=== PATIENT | female | born 1940 | race Caucasian/White ===

== ENCOUNTER 2016-07-08 11:02 | Emergency (ER) | payer OTHER ==
--- NOTE | 2016-07-08 12:19 | RAD ---
INDICATION: Bent over and felt back pain and hip pain following exercise. COMPARISON: None TECHNIQUE: Noncontrast axial source images was performed from the thoracolumbar junction to the sacrum. Coronal and and sagittal reformatted images were generated. FINDINGS: Vertebrae: There is no fracture or acute focal bony lesion. The osseous structures appear normal for age. Alignment: The lumbar vertebrae are normally aligned. Central Canal: There are no significant CT abnormalities of the central canal or foramina. MR imaging is a more sensitive method to evaluate the canal and foramina. Intervertebral disc spaces: The disc spaces are maintained. Soft tissues: The paravertebral soft tissues are normal. Other: Incidental note is made of aortic calcifications. There is a tiny granuloma in the liver. IMPRESSION: NO ACUTE CT FINDINGS.
--- NOTE | 2016-07-08 12:21 | RAD ---
INDICATION: Hip pain following exercise COMPARISON: CT lumbar spine same date TECHNIQUE: Noncontrast axial source images were obtained from the iliac crests through the symphysis pubis. FINDINGS: There are no acute CT abnormalities of the bony pelvis. Several tiny sclerotic foci involving the right sacral alar are likely bone islands. The hips articulate normally There are calcified uterine leiomyomas. There is no adnexal mass. No free fluid or adenopathy is seen. The noncontrast CT appearance of the bowel is remarkable for scant diverticula. The superficial soft tissues appear normal. The bladder appears normal. IMPRESSION: NO ACUTE CT FINDINGS
[2016-07-08] MEDS ORDERED: predniSONE TAB* 20 MG PO ONE (13:16)
[2016-07-08 14:03] VITALS: BP 99/58
--- NOTE | 2016-08-01 14:21 | ED ---
Back Pain - HPI Summary HPI Summary: Patient presents with her daughter with pain from her low back that radiates to her entire right leg, from hip to ankle. Patient was doing exercises yesterday , when she bent over and stood up she heard a "pop". She performs this exercise routine regularly. She denies incontinence of urine or stool, no N/T or inability to walk. - History of Current Complaint Chief Complaint: EDBackInjuryPain Stated Complaint: RT LEG PAIN Time Seen by Provider: 07/08/16 11:34 Hx Obtained From: Patient, Family/Capacity Planning Manager Onset/Duration: Gradual Onset Timing: Constant Severity Initially: Severe Severity Currently: Severe Pain Intensity: 8 Pain Scale Used: 0-10 Numeric Character: Dull, Aching, Stiffness Aggravating Symptom(s): Bending Alleviating Symptom(s): Nothing Associated Signs And Symptoms: Positive: Pain with Weight Bearing - Allergies/Home Medications Allergies/Adverse Reactions: Allergies Allergy/AdvReac Type Severity Reaction Status Date / Time Lactose Intolerance (GI) Allergy Nausea And Verified 07/08/16 11:08 Vomiting Home Medications: Home Medications Atorvastatin* [Lipitor 10 MG*] 1 tab PO .EVERY EVENING 07/08/16 [History Confirmed 07/08/16] Omeprazole CAP* [Prilosec CAP* 20 MG] 1 cap PO DAILY 07/08/16 [History Confirmed 07/08/16] María D 1,000 i.u. PO DAILY 07/08/16 [History] PMH/Surg Hx/FS Hx/Imm Hx Endocrine/Hematology History: Reports: Other Endocrine/Hematological Disorders - gout Infectious Disease History: No Infectious Disease History: Denies: Traveled Outside the [place] in Last 30 Days - Family History Known Family History: Positive: Hypertension - Social History Occupation: Retired Lives: With Family Alcohol Use: None Substance Use Type: Reports: None Smoking Status (MU): Never Smoked Tobacco Review of Systems Positive: Myalgia Negative: Paresthesia, Numbness All Other Systems Reviewed And Are Negative: Yes Physical Exam Triage Information Reviewed: Yes Vital Signs On Initial Exam: Initial Vitals Temp Pulse Resp BP Pulse Ox 97.1 F 71 18 143/59 100 07/08/16 11:03 07/08/16 11:03 07/08/16 11:03 07/08/16 11:03 07/08/16 11:03 Vital Signs Reviewed: Yes Appearance: Positive: Well-Appearing, No Pain Distress, Well-Nourished Skin: Positive: Warm, Skin Color Reflects Adequate Perfusion, Dry, Soft Head/Face: Positive: Normal Head/Face Inspection Eyes: Positive: EOMI, HEENA, Conjunctiva Clear ENT: Positive: Hearing grossly normal Neck: Positive: Supple, Nontender Respiratory/Lung Sounds: Positive: Breath Sounds Present Cardiovascular: Positive: RRR Musculoskeletal: Positive: Strength/ROM Intact - TTP right SI joint over right buttock, Pain @ - TTP right Neurological: Positive: Sensory/Motor Intact, Alert, Oriented to Person Place, Time, NV Bundle Intact Distally, Normal Gait Psychiatric: Positive: Affect/Mood Appropriate AVPU Assessment: Alert Diagnostics - Vital Signs Vital Signs Temp Pulse Resp BP Pulse Ox 07/08/16 14:02 99.3 F 62 18 99/58 07/08/16 11:11 97.2 F 89 16 143/59 100 07/08/16 11:03 97.1 F 71 18 143/59 100 - Laboratory Lab Statement: Any lab studies that have been ordered have been reviewed, and results considered in the medical decision making process. - CT No standard instances CT Interpretation: No Acute Changes CT Interpretation Completed By: Radiologist Back Pain Course/Dx - Diagnoses Differential Diagnosis/HQI/PQRI: Positive: Aneurysm, Arthritis, Fracture, Herniated Disc, Strain, Sprain Provider Diagnoses: Sciatica of right side Discharge - Discharge Plan Condition: Stable Disposition: HOME Prescriptions: predniSONE TAB* [Deltasone TAB*] 40 mg PO DAILY #9 tab Patient Education Materials: Sciatica (ED) Additional Instructions: Please take the prednisone as prescribed until it is completely gone. Use ibuprofen for pain as needed and perform activities as tolerated. Follow-up with your primary care provider if your symptoms do not begin to improve in the next 3-5 days. Return to the emergency department if symptoms worsen.
== END 2016-07-08 14:02 | disposition home or self-care (01) ==
LOC: ED 11:02
DX: M54.31 Sciatica, right side (principal); M54.5 Low back pain; M79.604 Pain in right leg
CPT/HCPCS: 72131; 72192; 99281

== ENCOUNTER 2018-10-04 15:53 | Emergency (ER) | payer MEDICARE, MEDICAID ==
--- OUTSIDE RECORDS SUMMARY | 2018-10-04 15:58 | XMS REPORT | Continuity of Care Document ---
:1940 External Reference #:[id number] Author Name Cole Pete M.D. Address [address] [place] [address] Care Team Providers Name Role Phone Shira Denton M.D. Primary Care Physician Unavailable Payers Date Identification Numbers Payment Provider Subscriber Policy Number: [id number] Medicare - NGS Yocasta May PayID: [id number] [place] [address] Policy Number: [id number] Medicaid Yocasta May PayID: [id number] [place] [address] Problems Active Problems Provider Date Hypercholesterolemia Onset: Osteoporosis Onset: Herpes simplex Onset: Combined form of senile cataract Cole Pete M.D. 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 ETOH Use Denies alcohol use Recreational Drug Use Denies Drug Use Tobacco Use Start: Unknown Patient has never smoked Smoking Status Reviewed: 09/19/18 Patient has never smoked Allergies, Adverse Reactions, Alerts Active Allergies Reaction Severity Comments Date Lactose 09/19/2018 Medications Active Medications SIG Qnty Indications Ordering Provider Date Atorvastatin Calcium Unknown 20mg Tablets Vitamin D every day Unknown 1000Unit Tablets Acyclovir as needed Unknown 200mg Capsules Plan of Treatment 09/19/2018 - Cole Pete M.D.H25.058 Combined forms of age-related cataract, bilateralComments:Smoking can increase the risk of developing or worsening any eye related disease, as well as affect your overall health. If you are a smoker, we strongly recommend that you quit.If you are not a smoker, we strongly recommend that you do not start. You have been diagnosed with cataracts. If you are happy with your vision as it is now, then we will see you at your next scheduled appointment. If you feel like your vision is getting worse before your scheduled appointment, please call Krystal at .Follow up:1 Year Follow Up DFE You can expect to have your eyes dilated at your next visit. If Dr. Pete orders any additional testing, it may require extra time. We recommend that you bring sunglasses, as dilation drops often make you light sensitive until they wear off. We always recommend you bring someone to drive you home if you are uncomfortable driving with your eyes dilated. If you have any questions before your next visit, feel free to call our office at .[phone] Nonexudative age-related macular degeneration, bilateral, early dry stageComments:You have Macular Degeneration. Check your Amsler Grid, with each eye separately, and take the AREDS II formula vitamins. If you notice any changes in your vision, please call the office and schedule anappointment to see any of the doctors here.
--- OUTSIDE RECORDS SUMMARY | 2018-10-04 15:58 | XMS REPORT | Continuity of Care Document ---
:1940 External Reference #:[id number] Author Name Yesenia Malagon Care Team Providers Name Role Phone Shira Denton MD Primary Care Physician Unavailable Payers Date Identification Numbers Payment Provider Subscriber Policy Number: [id number] Medicare Yocasta May PayID: [id number] [address] [place] [address] Effective: 2018 Policy Number: [id number] Medicaid Yocasta May Group Name: 1 1 [address] PayID: [id number] [place] [address] Expires: 2013 Policy Number: [id number] Medicaid Yocasta May Group Name: [id number] [address] PayID: [id number] [place] [address] Problems Active Problems Provider Date Palpitations Tina Cabrera M.D. Onset: 11/27/2013 Hyperlipidemia Tina Cabrera M.D. Onset: 11/27/2013 Gastroesophageal reflux disease Shira Denton M.D. Onset: 06/06/2016 Osteopenia Shira Denton M.D. Onset: 10/20/2016 Resolved Problems Generalized anxiety disorder Tina Cabrera M.D. Onset: 11/27/2013 Resolved: 06/06/2016 Family History Date Family Member(s) Observation Comments Father due to no known cardiac () - 20's in ww2 issues Mother due to no known cardiac () - in her 90's. issues Siblings None Social History Type Date Description Comments Sex Unknown Marital Status has 2 sons, [place]. lives with son [place] in [place] Lives With Son Occupation [employer] Tobacco Use Start: Unknown Never Smoked Cigarettes Smoking Status Reviewed: 09/12/18 Never Smoked Cigarettes ETOH Use Denies alcohol use Tobacco Use Start: Unknown Patient has never smoked Recreational Drug Use Denies Drug Use Exercise Type/Frequency Exercises regularly Exercise Type/Frequency walks Allergies, Adverse Reactions, Alerts Active Allergies Reaction Severity Comments Date Lactose (Intolerance) 11/03/2014 Inactive Allergies NKDA 11/14/2013 Medications Active Medications SIG Qnty Indications Ordering Date Provider Shingrix intramuscular x 1 1units Shira Denton, 11/13/2017 50mcg then repeat in 4 M.D. Suspension Rec months Acyclovir by mouth 3x a day 30tabs B00.1 Shira Denton, 07/03/2017 400mg for 5 days as needed M.D. Tablets cold sore Vitamin D-3 Liquid 1 drop Unknown alternate day 2 drops Atorvastatin Calcium take 1 tablet by 90tabs Carolyn Guillermo, mouth daily N.P. 20mg Tablets History Medications Pantoprazole Sodium once a day 60tabs K21.9 Shira Denton, 11/13/2017 - M.D. 05/16/[address] Santiagoyclfaith apply small 15gm B00.1 Jyoti 06/28/2017 - 5% Ointment amount every 4 Manuel, INFECTION CONTROL PRACTITIONER 07/03/2017 hours (5xqd) as needed for cold sores Co Q 10 once a day( not Shira Denton, 11/14/2016 - 10mg Capsules taking) M.D. 08/14/2017 Omeprazole 1 by mouth every 30caps K21.9 Shira Denton, 07/26/2016 - 20mg day M.D. 11/13/2016 Capsules Omeprazole 1 by mouth every 60caps K21.9 Shira Denton, 06/06/2016 - 20mg day M.D. 07/26/2016 Capsules Atorvastatin Calcium take one tablet E78.5 Dylan Martins 12/01/2015 - by mouth at Fede Kaye 11/30/2015 20mg Tablets bedtime Vitamin D take one capsule 8caps Tina Cabrera, 11/24/2015 - (Ergocalciferol) by mouth once a M.D. 06/06/2016 week [id number] Capsules Co Q-10 1 by mouth every 60caps Dylan Martins 08/02/2015 - 200mg day (no longer Fede Kaye 06/06/2016 Capsules taking) Colcrys 1 by mouth twice 30tabs M79.672 Tina Cabrera, 06/10/2015 - 0.6mg Tablets a day (pt states M.DMelly 11/11/2015 no longer taking) Potassium Chloride 1 po qd 90tabs Dylan Martins 11/09/2014 - ER Fede Kaye 06/10/2015 20Meq Tablets ER Potassium Chloride 1 po qd 90tabs Dylan Martins 11/09/2014 - Fede Kaye 11/09/2014 20Meq Tablets ER Potassium Chloride 1 po qd 90units Tina Cabrera 11/09/2014 - M.DMelly 11/09/2014 20Meq Doxycycline Hyclate 1 by mouth twice 28tabs Tina Cabrera 08/18/2014 - a day M.DMelly 11/03/2014 100mg Tablets Doxycycline Hyclate two caps by mouth 2cmax Napier 08/03/2014 - once daily Pt, Fede Lutz 08/06/2014 100mg Capsules states not currently taking Vitamin D3 1 tab by mouth 8caps Tina Cabrera, 06/30/2014 - 48239Henk once per week, 8 M.DMelly 11/03/2014 Capsules weeks, then follow up for blood test Bisoprolol Fumarate 1/2 by mouth 45tabs Dylan Martins 06/22/2014 - every day Fede Kaye 08/05/2014 5mg Tablets No Active Unknown 05/08/2014 - Medications 05/08/2014 Omeprazole 1 by mouth every 90caps 530.11 Tina Cabrera 05/08/2014 - 20mg day Pt states she M.DMelly 06/10/2015 Capsules is not currently taking Glucosamine as directed on 100caps 848.8 Tina Cabrera, 12/02/2013 - Chondroitin 500 bottle M.D. 05/08/2014 Complex 500Comp Capsules Atorvastatin Calcium 1/2 by mouth 45tabs E78.5 Dylan Martins - every day Fede Kaye 06/10/2018 20mg Tablets Vitamin B-12 by mouth every Unknown - day 10/06/2015 [id number] Capsules Aspirin Ec 1 tablet daily Unknown - 81mg 06/06/2016 Torsemide 1 tablet by mouth 5tabs Dylan Martins - 10mg today (prn) Fede Kaye 09/12/2018 Tablets Immunizations CPT Code Status Date Vaccine Reaction Lot # [id number] Given 11/13/2017 Tdap - [id number] Tetanus/Diptheria/Acellular Pertussis [id number] Given 06/06/2016 Pneumococcal Conjugate per log and pt she [id number] Vaccine 13 Valent For rec'd injection on this Intramuscular Use day. order was not completed by Nurse. ... 11/14/16 [id number] Given 12/18/2013 Pneumonia Vaccine [id number] Vital Signs Date Vital Result Comment 09/12/2018 1:04pm Height 61 inches 5'1" Weight 143.00 lb Heart Rate 62 /min BP Systolic Sitting 126 mmHg BP Diastolic Sitting 61 mmHg O2 % BldC Oximetry 100 % BMI (Body Mass Index) 27.0 kg/m2 06/11/2018 3:26pm Height 61 inches 5'1" Weight 143.00 lb with out shoes Heart Rate 70 /min BP Systolic Sitting 110 mmHg Lue reg cuff BP Diastolic Sitting 50 mmHg Lue reg cuff BP Systolic Standing 110 mmHg Lue reg cuff BP Diastolic Standing 52 mmHg Lue reg cuff Respiratory Rate 16 /min BMI (Body Mass Index) 27.0 kg/m2 05/16/2018 3:38pm Height 61 inches 5'1" Weight 143.00 lb Heart Rate 62 /min BP Systolic Sitting 130 mmHg Lue reg cuff BP Diastolic Sitting 65 mmHg Lue reg cuff BP Systolic Standing 106 mmHg la repeat sit BP Diastolic Standing 59 mmHg la repeat sit Respiratory Rate 15 /min O2 % BldC Oximetry 98 % ra BMI (Body Mass Index) 27.0 kg/m2 05/16/2018 8:30am Height 61 inches 5'1" Weight 143.00 lb Heart Rate 61 /min BP Systolic Sitting 140 mmHg BP Diastolic Sitting 78 mmHg O2 % BldC Oximetry 98 % BMI (Body Mass Index) 27.0 kg/m2 11/13/2017 10:33am Height 61 inches 5'1" Weight 139.00 lb Heart Rate 69 /min BP Systolic Sitting 110 mmHg BP Diastolic Sitting 60 mmHg O2 % BldC Oximetry 96 % BMI (Body Mass Index) 26.3 kg/m2 08/14/2017 8:18am Weight 140.00 lb Heart Rate 78 /min BP Systolic Sitting 110 mmHg lue reg cuff BP Diastolic Sitting 58 mmHg lue reg cuff BP Systolic Standing 100 mmHg lue reg cuff BP Diastolic Standing 40 mmHg lue reg cuff Respiratory Rate 16 /min Ejection Fraction 60-65% 07/19/2017 echo 06/28/2017 11:39am Weight 137.00 lb Heart Rate 80 /min BP Systolic 110 mmHg BP Diastolic 60 mmHg Body Temperature 98.4 F O2 % BldC Oximetry 96 % 06/14/2017 2:01pm Height 61 inches 5'1" Weight 146.00 lb with out shoes Heart Rate 60 /min BP Systolic Sitting 120 mmHg Lue reg cuff BP Diastolic Sitting 60 mmHg Lue reg cuff Respiratory Rate 16 /min BMI (Body Mass Index) 27.6 kg/m2 11/14/2016 8:40am Height 61.3 inches 5'1.30" Weight 137.12 lb Heart Rate 67 /min BP Systolic Sitting 122 mmHg BP Diastolic Sitting 58 mmHg Body Temperature 97.6 F O2 % BldC Oximetry 96 % BMI (Body Mass Index) 25.7 kg/m2 07/26/2016 9:46am Weight 138.00 lb Heart Rate 66 /min BP Systolic Sitting 122 mmHg BP Diastolic Sitting 76 mmHg Respiratory Rate 15 /min O2 % BldC Oximetry 97 % 06/06/2016 1:30pm Height 61 inches 5'1" Weight 140.25 lb with shoes Heart Rate 72 /min BP Systolic Sitting 154 mmHg LA reg cuff BP Diastolic Sitting 78 mmHg LA reg cuff BP Systolic Standing 138 mmHg LA Repeat Sit BP Diastolic Standing 61 mmHg LA Repeat Sit BMI (Body Mass Index) 26.5 kg/m2 Ejection Fraction 60% stress echo 08/20/14 06/06/2016 8:51am Weight 139.00 lb Heart Rate 62 /min BP Systolic Sitting 128 mmHg BP Diastolic Sitting 80 mmHg Respiratory Rate 15 /min Body Temperature 98.0 F O2 % BldC Oximetry 98 % 11/11/2015 2:07pm Height 61 inches 5'1" Weight 135.00 lb Heart Rate 69 /min BP Systolic Sitting 126 mmHg BP Diastolic Sitting 50 mmHg Body Temperature 99.1 F O2 % BldC Oximetry 98 % BMI (Body Mass Index) 25.5 kg/m2 10/07/2015 1:13pm Height 61 inches 5'1" Weight 136.00 lb Heart Rate 70 /min BP Systolic Sitting 124 mmHg Ra reg cuff BP Diastolic Sitting 76 mmHg Ra reg cuff BP Systolic Standing 120 mmHg Ra reg cuff BP Diastolic Standing 70 mmHg Ra reg cuff Respiratory Rate 16 /min BMI (Body Mass Index) 25.7 kg/m2 Ejection Fraction 60-65% 06/26/14 08/02/2015 9:27am Height 61 inches 5'1" Weight 137.25 lb with shoes Heart Rate 70 /min BP Systolic Sitting 124 mmHg LA, regular BP Diastolic Sitting 64 mmHg LA, regular BMI (Body Mass Index) 25.9 kg/m2 Ejection Fraction 60% Nem 08/20/14 06/10/2015 3:20pm Height 61 inches 5'1" Weight 133.00 lb Heart Rate 74 /min BP Systolic 102 mmHg BP Diastolic 59 mmHg Body Temperature 99.3 F O2 % BldC Oximetry 99 % BMI (Body Mass Index) 25.1 kg/m2 11/03/2014 2:09pm Height 61 inches 5'1" Weight 133.50 lb Heart Rate 71 /min BP Systolic Sitting 110 mmHg BP Diastolic Sitting 62 mmHg O2 % BldC Oximetry 98 % BMI (Body Mass Index) 25.2 kg/m2 08/20/2014 11:38am Height 61 inches 5'1" Weight 132.00 lb Heart Rate 64 /min BP Systolic Sitting 100 mmHg BP Diastolic Sitting 60 mmHg Body Temperature 98.8 F O2 % BldC Oximetry 96 % BMI (Body Mass Index) 24.9 kg/m2 08/06/2014 10:58am Height 61 inches 5'1" Weight 129.75 lb Heart Rate 65 /min BP Systolic Sitting 112 mmHg BP Diastolic Sitting 60 mmHg Body Temperature 98.2 F O2 % BldC Oximetry 98 % BMI (Body Mass Index) 24.5 kg/m2 08/06/2014 9:32am Height 61 inches 5'1" Weight 133.00 lb Heart Rate 76 /min BP Systolic Sitting 110 mmHg LA reg cuff BP Diastolic Sitting 56 mmHg LA reg cuff Respiratory Rate 12 /min BMI (Body Mass Index) 25.1 kg/m2 Ejection Fraction 60-65 echo 06/26/14 06/22/2014 9:57am Height 61 inches 5'1" Weight 129.75 lb Heart Rate 66 /min BP Systolic Sitting 118 mmHg LA, reg BP Diastolic Sitting 68 mmHg LA, reg BMI (Body Mass Index) 24.5 kg/m2 05/08/2014 3:45pm Height 61 inches 5'1" Weight 136.00 lb Heart Rate 64 /min BP Systolic Sitting 112 mmHg BP Diastolic Sitting 62 mmHg Body Temperature 97.9 F BMI (Body Mass Index) 25.7 kg/m2 12/02/2013 11:41am Height 61 inches 5'1" Weight 134.75 lb Heart Rate 62 /min BP Systolic Sitting 114 mmHg BP Diastolic Sitting 68 mmHg O2 % BldC Oximetry 99 % BMI (Body Mass Index) 25.5 kg/m2 11/14/2013 9:10am Height 61 inches 5'1" Weight 133.00 lb Heart Rate 68 /min BP Systolic Sitting 112 mmHg BP Diastolic Sitting 60 mmHg BMI (Body Mass Index) 25.1 kg/m2 Results Test Date Facility Test Result H/L Range Note CBC Auto Diff 08/09/2018 [facility] White Blood 5.6 10^3/uL N 3.5-10.[address] [place] [address] [phone] Red Blood Count 4.53 10^6/uL N 3.70-4.87 Hemoglobin 13.1 g/dL N 12.0-16.0 Hematocrit 40 % N 35-47 Mean Corpuscular Volume 88 fL N 80-97 Mean Corpuscular Hemoglobin 29 pg N 27-31 Mean Corpuscular HGB Conc 33 g/dL N 31-36 Red Cell Distribution Width 14 % N 10.5-15 Platelet Count 176 10^3/uL N 150-450 Mean Platelet Volume 8.5 fL N 7.4-10.4 Abs Neutrophils 3.4 10^3/uL N 1.5-7.7 Abs Lymphocytes 1.6 10^3/uL N 1.0-4.8 Abs Monocytes 0.4 10^3/uL N 0-0.8 Abs Eosinophils 0.1 10^3/uL N 0-0.6 Abs Basophils 0.0 10^3/uL N 0-0.2 Abs Nucleated RBC 0.0 10^3/uL Granulocyte % 60.9 % Lymphocyte % 29.7 % Monocyte % 7.3 % Eosinophil % 1.8 % Basophil % 0.3 % Nucleated Red Blood Cells % 0.1 Laboratory test 08/09/2018 [facility] D Dimer < 200 N Less Than [address] Quantitative ng/mL [address] [place], [place] [id number] [phone] B-Type Natriuretic Peptide BNP 260 pg/mL High <=100 Laboratory test 05/17/2018 [facility] D Dimer 202 ng/mL N Less Than [address] Quantitative [address] [place] [address] [phone] B-Type Natriuretic Peptide BNP 570 pg/mL High <=100 CBC Auto Diff 05/17/2018 [facility] White Blood 6.1 10^3/uL N 3.5-10.[address] [place] [address] [phone] Red Blood Count 4.61 10^6/uL N 4.00-5.40 Hemoglobin 13.3 g/dL N 12.0-16.0 Hematocrit 41 % N 35-47 Mean Corpuscular Volume 88 fL N 80-97 Mean Corpuscular Hemoglobin 29 pg N 27-31 Mean Corpuscular HGB Conc 33 g/dL N 31-36 Red Cell Distribution Width 14 % N 10.5-15 Platelet Count 186 10^3/uL N 150-450 Mean Platelet Volume 8.8 fL N 7.4-10.4 Abs Neutrophils 4.0 10^3/uL N 1.5-7.7 Abs Lymphocytes 1.5 10^3/uL N 1.0-4.8 Abs Monocytes 0.5 10^3/uL N 0-0.8 Abs Eosinophils 0.1 10^3/uL N 0-0.6 Abs Basophils 0 10^3/uL N 0-0.2 Abs Nucleated RBC 0 10^3/uL Granulocyte % 64.8 % Lymphocyte % 25.2 % Monocyte % 8.2 % Eosinophil % 1.1 % Basophil % 0.7 % Nucleated Red Blood Cells % 0.1 Lipid Profile 05/16/2018 [facility] Triglycerides 100 mg/dL 3 (Trig/Chol/HDL) [address] [place] [address] [phone] Cholesterol 189 mg/dL 4 HDL Cholesterol 57.7 mg/dL 5 LDL Cholesterol 111 mg/dL 6 Laboratory test 05/16/2018 [facility] Vitamin D 35.0 ng/mL N 20-[address] Total 25(Oh) [place], [place] [id number] [phone] Comp Metabolic 05/16/2018 [facility] Sodium 143 mmol/L N 135- [address] [place] [address] [phone] Potassium 4.4 mmol/L N 3.5-5.0 Chloride 106 mmol/L N 101-111 Co2 Carbon Dioxide 27 mmol/L N 22-32 Anion Gap 10 mmol/L N 2-11 Glucose 92 mg/dL N 70-100 Blood Urea Nitrogen 13 mg/dL N 6-24 Creatinine 0.75 mg/dL N 0.51-0.95 BUN/Creatinine Ratio 17.3 N 8-20 Calcium 9.7 mg/dL N 8.6-10.3 Total Protein 6.6 g/dL N 6.4-8.9 Albumin 4.0 g/dL N 3.2-5.2 Globulin 2.6 g/dL N 2-4 Albumin/Globulin Ratio 1.5 N 1-3 Total Bilirubin 0.50 mg/dL N 0.2-1.0 Alkaline Phosphatase 87 U/L N 34-104 Alt 22 U/L N 7-52 Ast 25 U/L N 13-39 Egfr Non- 74.7 >60 Egfr 90.4 >60 8 Lipid Profile 10/25/2017 [facility] Triglycerides 111 mg/dL 9 (Trig/Chol/HDL) [address] [place] [address] [phone] Cholesterol 192 mg/dL 10 HDL Cholesterol 58.2 mg/dL 11 LDL Cholesterol 112 mg/dL 12 Comp Metabolic Panel 10/25/2017 [facility] Sodium 144 mmol/L N 135-[address] [place] [address] [phone] Potassium 4.6 mmol/L N 3.5-5.0 Chloride 107 mmol/L N 101-111 Co2 Carbon Dioxide 30 mmol/L N 22-32 Anion Gap 7 mmol/L N 2-11 Glucose 90 mg/dL N 70-100 Blood Urea Nitrogen 16 mg/dL N 6-24 Creatinine 0.80 mg/dL N 0.51-0.95 BUN/Creatinine Ratio 20.0 N 8-20 Calcium 9.5 mg/dL N 8.6-10.3 Total Protein 6.7 g/dL N 6.4-8.9 Albumin 4.2 g/dL N 3.2-5.2 Globulin 2.5 g/dL N 2-4 Albumin/Globulin Ratio 1.7 N 1-3 Total Bilirubin 0.50 mg/dL N 0.2-1.0 Alkaline Phosphatase 80 U/L N 34-104 Alt 17 U/L N 7-52 Ast 20 U/L N 13-39 Egfr Non- 69.6 >60 Egfr 84.2 >60 13 Lipid Panel - 10/25/2017 [facility] Creatine 51 U/L N 10-223 [address] Kinase(CK) [place] [address] [phone] Laboratory test 10/25/2017 [facility] Vitamin D Total 27.1 N 20-50 [address] 25(Oh) ng/[place] [address] [phone] CBC Auto Diff 06/07/2017 [facility] White Blood 5.5 N 3.5- 10.[address] Count 10^3/[place] [address] [phone] Red Blood Count 4.80 10^6/uL N 4.0-5.4 Hemoglobin 13.7 g/dL N 12.0-16.0 Hematocrit 42 % N 35-47 Mean Corpuscular Volume 87 fL N 80-97 Mean Corpuscular Hemoglobin 29 pg N 27-31 Mean Corpuscular HGB Conc 33 g/dL N 31-36 Red Cell Distribution Width 14 % N 10.5-15 Platelet Count 168 10^3/uL N 150-450 Mean Platelet Volume 9 um3 N 7.4-10.4 Abs Neutrophils 3.4 10^3/uL N 1.5-7.7 Abs Lymphocytes 1.7 10^3/uL N 1.0-4.8 Abs Monocytes 0.4 10^3/uL N 0-0.8 Abs Eosinophils 0.1 10^3/uL N 0-0.6 Abs Basophils 0 10^3/uL N 0-0.2 Abs Nucleated RBC 0 10^3/uL Granulocyte % 60.8 % N 38-83 Lymphocyte % 30.9 % N 25-47 Monocyte % 6.9 % N 0-7 Eosinophil % 1.1 % N 0-6 Basophil % 0.3 % N 0-2 Nucleated Red Blood Cells % 0 Lipid Panel - 06/07/2017 [facility] Creatine Kinase 51 U/L N 10-[address] [place] [address] [phone] Comp Metabolic 06/07/2017 [facility] Sodium 142 N 133-[address] mmol/[place] [address] [phone] Potassium 4.9 mmol/L N 3.5-5.0 Chloride 105 mmol/L N 101-111 Co2 Carbon Dioxide 31 mmol/L N 22-32 Anion Gap 6 mmol/L N 2-11 Glucose 92 mg/dL N 70-100 Blood Urea Nitrogen 15 mg/dL N 6-24 Creatinine 0.82 mg/dL N 0.51-0.95 BUN/Creatinine Ratio 18.3 N 8-20 Calcium 10.0 mg/dL N 8.6-10.3 Total Protein 6.9 g/dL N 6.4-8.9 Albumin 4.3 g/dL N 3.2-5.2 Globulin 2.6 g/dL N 2-4 Albumin/Globulin Ratio 1.7 N 1-3 Total Bilirubin 0.60 mg/dL N 0.2-1.0 Alkaline Phosphatase 81 U/L N 34-104 Alt 15 U/L N 7-52 Ast 20 U/L N 13-39 Egfr Non- 67.6 >60 Egfr 86.9 >60 17 Lipid Profile 06/07/2017 [facility] Triglycerides 107 mg/dL 18 (Trig/Chol/HDL) [address] [place] [address] [phone] Cholesterol 240 mg/dL 19 HDL Cholesterol 56.3 mg/dL 20 LDL Cholesterol 162 mg/dL 21 Laboratory test 06/07/2017 [facility] TSH (Thyroid 3.17 mcIU/mL N 0.34-5.[address] Stim Horm) [place] [address] [phone] Magnesium 2.4 mg/dL N 1.9-2.7 23 Vitamin D Total 25(Oh) 30.6 ng/mL N 20-50 Laboratory test 10/20/2016 [facility] Vitamin D Total 25.8 Low 30-[address] 25(Oh) ng/mL [place], [place] [phone] Lipid Profile 10/20/2016 [facility] Triglycerides 90 mg/dL N 24 (Trig/Chol/HDL) [address] [place] [address] [phone] Cholesterol 204 mg/dL N 25 HDL Cholesterol 50.0 mg/dL N 26 LDL Cholesterol 136 mg/dL N 27 Laboratory test 07/27/2016 [facility] Creatine 58 U/L N 10- 223 28 finding 101 Kinase(CK) [place] [address] [phone] Lyme Disease Serology Negative N Negative 29 TSH (Thyroid Stim Horm) 1.11 mcIU/mL N 0.34-5.60 30 Erythrocyte Sed Rate 34 mm/Hr N 0-40 31 Basic Metabolic Panel 07/27/2016 [facility] Sodium 140 mmol/L N 133-[address] [place] [address] [phone] Potassium 4.7 mmol/L N 3.5-5.0 Chloride 106 mmol/L N 101-111 Co2 Carbon Dioxide 29 mmol/L N 22-32 Anion Gap 5 mmol/L N 2-11 Glucose 71 mg/dL N 70-100 Blood Urea Nitrogen 16 mg/dL N 6-24 Creatinine 0.85 mg/dL N 0.51-0.95 BUN/Creatinine Ratio 18.8 N 8-20 Calcium 9.6 mg/dL N 8.6-10.3 Egfr Non- 65.0 N >60 Egfr 83.6 N >60 32 Laboratory 07/27/2016 [facility] [place] Negative N Negative 33, 34 test finding [address] [place] [address] Antigen- [phone] Stool Laboratory 11/19/2015 [facility] Occult Blood neg x3 test finding - Stool Laboratory 11/19/2015 [facility] Vitamin D 24.7 ng/mL Low 30- 50 [address] Total 25(Oh) [place] [address] [phone] Lipid Panel - 11/04/2015 [facility] Creatine 53 U/L N 10-223 36, [address] Kinase(CK) [place] [address] [phone] Comp Metabolic 11/04/2015 [facility] Sodium 140 mmol/L N 133- [address] [place] [address] [phone] Potassium 4.8 mmol/L N 3.5-5.0 Chloride 106 mmol/L N 101-111 Co2 Carbon Dioxide 29 mmol/L N 22-32 Anion Gap 5 mmol/L N 2-11 Glucose 79 mg/dL N 70-100 Blood Urea Nitrogen 16 mg/dL N 6-24 Creatinine 0.75 mg/dL N 0.51-0.95 BUN/Creatinine Ratio 21.3 High 8-20 Calcium 9.5 mg/dL N 8.6-10.3 Total Protein 6.5 g/dL N 6.4-8.9 Albumin 4.0 g/dL N 3.2-5.2 Globulin 2.5 g/dL N 2-4 Albumin/Globulin Ratio 1.6 N 1-3 Total Bilirubin 0.60 mg/dL N 0.2-1.0 Alkaline Phosphatase 74 U/L N 34-104 Alt 13 U/L N 7-52 Ast 19 U/L N 13-39 Egfr Non- 75.3 N >60 Egfr 96.9 N >60 38 Lipid Profile 11/04/2015 [facility] Triglycerides 74 mg/dL N 39 (Trig/Chol/HDL) [address] [place] [address] [phone] Cholesterol 166 mg/dL N 40 HDL Cholesterol 54.8 mg/dL N 41 LDL Cholesterol 96 mg/dL N 42 CBC Auto Diff 07/02/2015 [facility] White Blood 5.2 10^3/uL N 3.5-10.[address] [place] [address] [phone] Red Blood Count 4.57 10^6/uL N 4.0-5.4 Hemoglobin 13.1 g/dL N 12.0-16.0 Hematocrit 39 % N 35-47 Mean Corpuscular Volume 86 fL N 80-97 Mean Corpuscular Hemoglobin 29 pg N 27-31 Mean Corpuscular HGB Conc 33 g/dL N 31-36 Red Cell Distribution Width 14 % N 10.5-15 Platelet Count 187 10^3/uL N 150-450 Mean Platelet Volume 8 um3 N 7.4-10.4 Abs Neutrophils 3.1 10^3/uL N 1.5-7.7 Abs Lymphocytes 1.6 10^3/uL N 1.0-4.8 Abs Monocytes 0.4 10^3/uL N 0-0.8 Abs Eosinophils 0.1 10^3/uL N 0-0.6 Abs Basophils 0 10^3/uL N 0-0.2 Abs Nucleated RBC 0 10^3/uL N Granulocyte % 59.4 % N 38-83 Lymphocyte % 30.8 % N 25-47 Monocyte % 7.0 % N 1-9 Eosinophil % 2.4 % N 0-6 Basophil % 0.4 % N 0-2 Nucleated Red Blood Cells % 0 N Lipid Profile 07/02/2015 [facility] Triglycerides 85 mg/dL N 44 (Trig/Chol/HDL) [address] [place] [address] [phone] Cholesterol 184 mg/dL N 45 HDL Cholesterol 53.7 mg/dL N 46 LDL Cholesterol 113 mg/dL N 47 Lipid Panel - 07/02/2015 [facility] Creatine 45 U/L N 10-223 [address] Kinase(CK) [place] [address] [phone] Comp Metabolic 07/02/2015 [facility] Sodium 142 N 133-[address] mmol/[place] [address] [phone] Potassium 5.1 mmol/L High 3.5-5.0 Chloride 106 mmol/L N 101-111 Co2 Carbon Dioxide 30 mmol/L N 22-32 Anion Gap 6 mmol/L N 2-11 Glucose 89 mg/dL N 70-100 Blood Urea Nitrogen 14 mg/dL N 6-24 Creatinine 0.83 mg/dL N 0.51-0.95 BUN/Creatinine Ratio 16.9 N 8-20 Calcium 9.8 mg/dL N 8.6-10.3 Total Protein 6.7 g/dL N 6.4-8.9 Albumin 4.2 g/dL N 3.2-5.2 Globulin 2.5 g/dL N 2-4 Albumin/Globulin Ratio 1.7 N 1-3 Total Bilirubin 0.60 mg/dL N 0.2-1.0 Alkaline Phosphatase 96 U/L N 34-104 Alt 19 U/L N 7-52 Ast 22 U/L N 13-39 Egfr Non- 67.0 N >60 Egfr 86.2 N >60 49 Laboratory test 06/10/2015 [facility] Uric Acid 3.9 mg/dL N 2.3-6.6 [address] [place] [address] [phone] Erythrocyte Sed Rate 44 mm/Hr High 0-40 51 CBC Auto Diff 10/16/2014 White Blood Count 6.6 10^3/uL N 4.8-10.8 Red Blood Count 4.65 10^6/uL N 4.0-5.4 Hemoglobin 13.6 g/dL N 12.0-16.0 Hematocrit 42 % N 35-47 Mean Corpuscular Volume 90 fL N 80-97 Mean Corpuscular Hemoglobin 29 pg N 27-31 Mean Corpuscular HGB Conc 33 g/dL N 31-36 Red Cell Distribution Width 14 % N 10.5-15 Platelet Count 186 10^3/uL N 150-450 Mean Platelet Volume 9 um3 N 7.4-10.4 Abs Neutrophils 4.1 10^3/uL N 1.5-7.7 Abs Lymphocytes 1.9 10^3/uL N 1.0-4.8 Abs Monocytes 0.4 10^3/uL N 0-0.8 Abs Eosinophils 0.1 10^3/uL N 0-0.6 Abs Basophils 0 10^3/uL N 0-0.2 Abs Nucleated RBC 0 10^3/uL N Granulocyte % 62.4 % N 38-83 Lymphocyte % 29.3 % N 25-47 Monocyte % 6.5 % N 1-9 Eosinophil % 1.2 % N 0-6 Basophil % 0.6 % N 0-2 Nucleated Red Blood Cells % 0 N Lipid Profile (Trig/Chol/HDL) 10/16/2014 Triglycerides 78 mg/dL N 52 Cholesterol 187 mg/dL N 53 HDL Cholesterol 59.4 mg/dL N 54 LDL Cholesterol 112 mg/dL N 55 Comp Metabolic Panel 10/16/2014 Sodium 142 mmol/L N 133-145 Potassium 3.9 mmol/L N 3.5-5.0 Chloride 106 mmol/L N 101-111 Co2 Carbon Dioxide 31 mmol/L N 22-32 Anion Gap 5 mmol/L N 2-11 Glucose 82 mg/dL N 70-100 Blood Urea Nitrogen 12 mg/dL N 6-24 Creatinine 0.77 mg/dL N 0.51-0.95 BUN/Creatinine Ratio 15.6 N 8-20 Calcium 9.6 mg/dL N 8.6-10.3 Total Protein 6.8 g/dL N 6.4-8.9 Albumin 4.4 g/dL N 3.2-5.2 Globulin 2.4 g/dL N 2-4 Albumin/Globulin Ratio 1.8 N 1-3 Total Bilirubin 0.50 mg/dL N 0.2-1.0 Alkaline Phosphatase 69 U/L N 34-104 Alt 14 U/L N 7-52 Ast 20 U/L N 13-39 Egfr Non- 73.3 N >60 Egfr 94.2 N >60 56 Lipid Panel - [facility] 10/16/2014 Creatine Kinase(CK) 55 U/L N 10-223 Laboratory test finding 10/16/2014 B-Type Natriuretic 225 pg/mL High 57 Peptide BNP Magnesium 2.0 mg/dL N 1.9-2.7 Laboratory test finding 08/20/2014 Vitamin D Total 25(Oh) 52.4 ng/mL High 30-50 Lyme Disease Serology Negative N Negative 58 CBC Auto Diff 06/25/2014 White Blood Count 7.9 10^3/uL N 4.8-10.8 Red Blood Count 4.72 10^6/uL N 4.0-5.4 Hemoglobin 13.8 g/dL N 12.0-16.0 Hematocrit 42 % N 35-47 Mean Corpuscular Volume 89 fL N 80-97 Mean Corpuscular Hemoglobin 29 pg N 27-31 Mean Corpuscular HGB Conc 33 g/dL N 31-36 Red Cell Distribution Width 14 % N 10.5-15 Platelet Count 195 10^3/uL N 150-450 Mean Platelet Volume 9 um3 N 7.4-10.4 Abs Neutrophils 5.6 10^3/uL N 1.5-7.7 Abs Lymphocytes 1.6 10^3/uL N 1.0-4.8 Abs Monocytes 0.5 10^3/uL N 0-0.8 Abs Eosinophils 0.1 10^3/uL N 0-0.6 Abs Basophils 0.1 10^3/uL N 0-0.2 Abs Nucleated RBC 0 10^3/uL N Granulocyte % 71.8 % N 38-83 Lymphocyte % 20.0 % Low 25-47 Monocyte % 5.9 % N 1-9 Eosinophil % 1.4 % N 0-6 Basophil % 0.9 % N 0-2 Nucleated Red Blood Cells % 0 N Lipid Panel - [facility] 06/25/2014 Creatine Kinase 53 U/L N 10-223 Comp Metabolic Panel 06/25/2014 Sodium 141 mmol/L N 133-145 Potassium 4.9 mmol/L N 3.5-5.0 Chloride 106 mmol/L N 101-111 Co2 Carbon Dioxide 31 mmol/L N 22-32 Anion Gap 4 mmol/L N 2-11 Glucose 88 mg/dL N 70-100 Blood Urea Nitrogen 13 mg/dL N 6-24 Creatinine 0.80 mg/dL N 0.51-0.95 BUN/Creatinine Ratio 16.3 N 8-20 Calcium 10.0 mg/dL N 8.6-10.3 Total Protein 6.9 g/dL N 6.4-8.9 Albumin 4.2 g/dL N 3.2-5.2 Globulin 2.7 g/dL N 2-4 Albumin/Globulin Ratio 1.6 N 1-3 Total Bilirubin 0.50 mg/dL N 0.2-1.0 Alkaline Phosphatase 76 U/L N 34-104 Alt 11 U/L N 7-52 Ast 19 U/L N 13-39 Egfr Non- 70.1 N >60 Egfr 90.2 N >60 59 Lipid Profile (Trig/Chol/HDL) 06/25/2014 Triglycerides 115 mg/dL N 60 Cholesterol 283 mg/dL N 61 HDL Cholesterol 54.3 mg/dL N 62 LDL Cholesterol 206 mg/dL N 63 Laboratory test finding 06/25/2014 B Type Natriuretic Peptide 208 pg/mL N 64 TSH (Thyroid Stimulating Horm) 2.54 IU/mL N 0.34-5.60 Magnesium 2.2 mg/dL N 1.9-2.7 Vitamin D, 25 06/25/2014 [facility] 25-Hydroxy Vitamin <4.0 ng/ mL N Hydroxy [address] [place], [place] [id number] [phone] 25-Hydroxy Vitamin D3 9.1 ng/mL N 25-Hydroxy Vitamin D Total 9.1 ng/mL Abnormal 65 Laboratory test 11/14/2013 [facility] TSH (Thyroid 2.27 IU/mL N 0.34-5.[address] [place] [address] Horm) [phone] Comp Metabolic 11/14/2013 [facility] Sodium 142 mmol/L N 133- 145 Panel [address] [facility] [address] [phone] Potassium 4.6 mmol/L N 3.7-5.6 Chloride 104 mmol/L N 101-111 Co2 Carbon Dioxide 31 mmol/L N 22-32 Anion Gap 7 mmol/L N 2-11 Glucose 91 mg/dL N 70-100 Blood Urea Nitrogen 15 mg/dL N 6-24 Creatinine 0.83 mg/dL N 0.51-0.95 BUN/Creatinine Ratio 18.1 N 8-20 Calcium 10.0 mg/dL N 8.6-10.3 Total Protein 7.4 g/dL N 6.4-8.9 Albumin 4.5 g/dL N 3.2-5.2 Globulin 2.9 g/dL N 2-4 Albumin/Globulin Ratio 1.6 N 1-3 Total Bilirubin 0.50 mg/dL N 0.2-1.0 Alkaline Phosphatase 81 U/L N 34-104 Alt 15 U/L N 7-52 Ast 21 U/L N 13-39 Egfr Non- 67.4 N >60 Egfr 86.7 N >60 66 CBC Auto Diff 11/14/2013 [facility] White Blood 5.7 10^3/uL N 4.8-10.[address] [place] [address] [phone] Red Blood Count 4.68 10^6/uL N 4.0-5.4 Hemoglobin 13.8 g/dL N 12.0-16.0 Hematocrit 41 % N 35-47 Mean Corpuscular Volume 87 fL N 80-97 Mean Corpuscular Hemoglobin 30 pg N 27-31 Mean Corpuscular HGB Conc 34 g/dL N 31-36 Red Cell Distribution Width 14 % N 10.5-15 Platelet Count 195 10^3/uL N 150-450 Mean Platelet Volume 9 um3 N 7.4-10.4 Abs Neutrophils 4.0 10^3/uL N 1.5-7.7 Abs Lymphocytes 1.3 10^3/uL N 1.0-4.8 Abs Monocytes 0.3 10^3/uL N 0-0.8 Abs Eosinophils 0.1 10^3/uL N 0-0.6 Abs Basophils 0.1 10^3/uL N 0-0.2 Abs Nucleated RBC 0 10^3/uL N Granulocyte % 70.1 % N 38-83 Lymphocyte % 22.0 % Low 25-47 Monocyte % 5.6 % N 1-9 Eosinophil % 1.3 % N 0-6 Basophil % 1.0 % N 0-2 Nucleated Red Blood Cells % 0 N Lipid Profile 11/14/2013 [facility] Triglycerides 124 mg/dL N 67 (Trig/Chol/HDL) [address] [place] [address] [phone] Cholesterol 204 mg/dL N 68 HDL Cholesterol 63.1 mg/dL N 69 LDL Cholesterol 116 mg/dL N 70 1 Please note: The following may produce a false positive D Dimer test: - Rheumatoid factor greater than 60 IU/ml - Plasma hemoglobin greater than 0.05 gm/dl - Bilirubin greater than 50 mg/dl - Lipids greater than 1000 mg/dl - FDP greater than 20 ug/ml 2 Please note: The following may produce a false positive D Dimer test: - Rheumatoid factor greater than 60 IU/ml - Plasma hemoglobin greater than 0.05 gm/dl - Bilirubin greater than 50 mg/dl - Lipids greater than 1000 mg/dl - FDP greater than 20 ug/ml 3 Desirable: <150 Borderline High: 150-199 High: 200-499 Very High: >500 4 Desirable: <200 Borderline High: 200-239 High: >239 5 Low: <40 Desirable: 40-60 High: >60 6 Desirable: <100 Near Optimal: 100-129 Borderline High: 130-159 High: 160-189 Very High: >189 7 FASTING 10 HOUR 8 Because ethnic data is not always readily available, this report includes an eGFR for both -Americans and non- Americans. The National Kidney Disease Education Program (NKDEP) does not endorse the use of the MDRD equation for patients that are not between the ages of 18 and 70, are , have extremes of body size, muscle mass, or nutritional status, or are non- or non-. According to the National Kidney Foundation, irrespective of diagnosis, the stage of the disease is based on the level of kidney function: Stage Description GFR(mL/min/1.73 m(2)) 1 Kidney damage with normal or decreased GFR 90 2 Kidney damage with mild decrease in GFR 60-89 3 Moderate decrease in GFR 30-59 4 Severe decrease in GFR 15-29 5 Kidney failure <15 (or dialysis) 9 Desirable: <150 Borderline High: 150-199 High: 200-499 Very High: >500 10 Desirable: <200 Borderline High: 200-239 High: >239 11 Low: <40 Desirable: 40-60 High: >60 12 Desirable: <100 Near Optimal: 100-129 Borderline High: 130-159 High: 160-189 Very High: >189 13 Because ethnic data is not always readily available, this report includes an eGFR for both -Americans and non- Americans. The National Kidney Disease Education Program (NKDEP) does not endorse the use of the MDRD equation for patients that are not between the ages of 18 and 70, are , have extremes of body size, muscle mass, or nutritional status, or are non- or non-. According to the National Kidney Foundation, irrespective of diagnosis, the stage of the disease is based on the level of kidney function: Stage Description GFR(mL/min/1.73 m(2)) 1 Kidney damage with normal or decreased GFR 90 2 Kidney damage with mild decrease in GFR 60-89 3 Moderate decrease in GFR 30-59 4 Severe decrease in GFR 15-29 5 Kidney failure <15 (or dialysis) 14 FASTING 10 HOUR fsting cc pmd Copy Result to: DYLAN KAYE ([id number]) 15 FASTING 10 HOUR fsting cc pmd Copy Result to: DYLAN KAYE ([id number]) 16 FASTING fsting cc pmd Copy Result to: MORENO LINDA ([id number]) 17 Because ethnic data is not always readily available, this report includes an eGFR for both -Americans and non- Americans. The National Kidney Disease Education Program (NKDEP) does not endorse the use of the MDRD equation for patients that are not between the ages of 18 and 70, are , have extremes of body size, muscle mass, or nutritional status, or are non- or non-. According to the National Kidney Foundation, irrespective of diagnosis, the stage of the disease is based on the level of kidney function: Stage Description GFR(mL/min/1.73 m(2)) 1 Kidney damage with normal or decreased GFR 90 2 Kidney damage with mild decrease in GFR 60-89 3 Moderate decrease in GFR 30-59 4 Severe decrease in GFR 15-29 5 Kidney failure <15 (or dialysis) 18 Desirable: <150 Borderline High: 150-199 High: 200-499 Very High: >500 19 Desirable: <200 Borderline High: 200-239 High: >239 20 Low: <40 Desirable: 40-60 High: >60 21 Desirable: <100 Near Optimal: 100-129 Borderline High: 130-159 High: 160-189 Very High: >189 22 FASTING fsting cc pmd Copy Result to: MORENO LINDA ([id number]) 23 FASTING fsting cc pmd Copy Result to: MORENO LINDA ([id number]) 24 Desirable <150 Borderline high 150-199 High 200-499 Very High >500 25 Desirable <200 Borderline high 200-239 High >239 26 Low <40 Desirable: 40-60 High: >60 27 Desirable: <100 mg/dL Near Optimal: 100-129 mg/dL Borderline High: 130-159 mg/dL High: 160-189 mg/dL Very High: >189 mg/dL 28 fsting cc pmd 29 Serologic response to B. burgdorferi infection is not detected, but cannot rule out early infection during which low or undetectable antibody levels to B. burgdorferi may be present. If clinically indicated, a new serum specimen should be submitted in 7-14 days. Test Performed by: [address] [address] 30 fsting cc pmd 31 fsting cc pmd 32 Because ethnic data is not always readily available, this report includes an eGFR for both -Americans and non- Americans. The National Kidney Disease Education Program (NKDEP) does not endorse the use of the MDRD equation for patients that are not between the ages of 18 and 70, are , have extremes of body size, muscle mass, or nutritional status, or are non- or non-. According to the National Kidney Foundation, irrespective of diagnosis, the stage of the disease is based on the level of kidney function: Stage Description GFR(mL/min/1.73 m(2)) 1 Kidney damage with normal or decreased GFR 90 2 Kidney damage with mild decrease in GFR 60-89 3 Moderate decrease in GFR 30-59 4 Severe decrease in GFR 15-29 5 Kidney failure <15 (or dialysis) 33 [id number] Test Performed by: [address] [address] 35 fsting cc pmd 36 PT IS FASTING 37 PT IS FASTING 38 Because ethnic data is not always readily available, this report includes an eGFR for both -Americans and non- Americans. The National Kidney Disease Education Program (NKDEP) does not endorse the use of the MDRD equation for patients that are not between the ages of 18 and 70, are , have extremes of body size, muscle mass, or nutritional status, or are non- or non-. According to the National Kidney Foundation, irrespective of diagnosis, the stage of the disease is based on the level of kidney function: Stage Description GFR(mL/min/1.73 m(2)) 1 Kidney damage with normal or decreased GFR 90 2 Kidney damage with mild decrease in GFR 60-89 3 Moderate decrease in GFR 30-59 4 Severe decrease in GFR 15-29 5 Kidney failure <15 (or dialysis) 39 Desirable <150 Borderline high 150-199 High 200-499 Very High >500 40 Desirable <200 Borderline high 200-239 High >239 41 Low <40 Desirable: 40-60 High: >60 42 Desirable: <100 mg/dL Near Optimal: 100-129 mg/dL Borderline High: 130-159 mg/dL High: 160-189 mg/dL Very High: >189 mg/dL 43 cc pmd. 44 Desirable <150 Borderline high 150-199 High 200-499 Very High >500 45 Desirable <200 Borderline high 200-239 High >239 46 Low <40 Desirable: 40-60 High: >60 47 Desirable: <100 mg/dL Near Optimal: 100-129 mg/dL Borderline High: 130-159 mg/dL High: 160-189 mg/dL Very High: >189 mg/dL 48 FASTING fsting cc pmd 49 Because ethnic data is not always readily available, this report includes an eGFR for both -Americans and non- Americans. The National Kidney Disease Education Program (NKDEP) does not endorse the use of the MDRD equation for patients that are not between the ages of 18 and 70, are , have extremes of body size, muscle mass, or nutritional status, or are non- or non-. According to the National Kidney Foundation, irrespective of diagnosis, the stage of the disease is based on the level of kidney function: Stage Description GFR(mL/min/1.73 m(2)) 1 Kidney damage with normal or decreased GFR 90 2 Kidney damage with mild decrease in GFR 60-89 3 Moderate decrease in GFR 30-59 4 Severe decrease in GFR 15-29 5 Kidney failure <15 (or dialysis) 50 fsting cc pmd 51 fsting cc pmd 52 Desirable <150 Borderline high 150-199 High 200-499 Very High >500 53 Desirable <200 Borderline high 200-239 High >239 54 Low <40 Desirable: 40-60 High: >60 55 Desirable: <100 mg/dL Near Optimal: 100-129 mg/dL Borderline High: 130-159 mg/dL High: 160-189 mg/dL Very High: >189 mg/dL 56 Because ethnic data is not always readily available, this report includes an eGFR for both -Americans and non- Americans. The National Kidney Disease Education Program (NKDEP) does not endorse the use of the MDRD equation for patients that are not between the ages of 18 and 70, are , have extremes of body size, muscle mass, or nutritional status, or are non- or non-. According to the National Kidney Foundation, irrespective of diagnosis, the stage of the disease is based on the level of kidney function: Stage Description GFR(mL/min/1.73 m(2)) 1 Kidney damage with normal or decreased GFR 90 2 Kidney damage with mild decrease in GFR 60-89 3 Moderate decrease in GFR 30-59 4 Severe decrease in GFR 15-29 5 Kidney failure <15 (or dialysis) 57 >100 to <200 pg/mL: likely compensated congestive heart failure (CHF) 200 to 400 pg/mL: likely moderate CHF >400 pg/mL: likely moderate to severe CHF 58 Serologic response to B. burgdorferi infection is not detected, but cannot rule out early infection during which low or undetectable antibody levels to B. burgdorferi may be present. If clinically indicated, a new serum specimen should be submitted in 7-14 days. Test Performed by: [place] [address] Trailer Chief: Tad Henderson II, M.D., Ph.D. 59 Because ethnic data is not always readily available, this report includes an eGFR for both -Americans and non- Americans. The National Kidney Disease Education Program (NKDEP) does not endorse the use of the MDRD equation for patients that are not between the ages of 18 and 70, are , have extremes of body size, muscle mass, or nutritional status, or are non- or non-. According to the National Kidney Foundation, irrespective of diagnosis, the stage of the disease is based on the level of kidney function: Stage Description GFR(mL/min/1.73 m(2)) 1 Kidney damage with normal or decreased GFR 90 2 Kidney damage with mild decrease in GFR 60-89 3 Moderate decrease in GFR 30-59 4 Severe decrease in GFR 15-29 5 Kidney failure <15 (or dialysis) 60 Desirable <150 Borderline high 150-199 High 200-499 Very High >500 61 Desirable <200 Borderline high 200-239 High >239 62 Low <40 Desirable: 40-60 High: >60 63 Desirable: <100 mg/dL Near Optimal: 100-129 mg/dL Borderline High: 130-159 mg/dL High: 160-189 mg/dL Very High: >189 mg/dL 64 >100 to <200 pg/mL: likely compensated congestive heart failure (CHF) 200 to 400 pg/mL: likely moderate CHF >400 pg/mL: likely moderate to severe CHF [place] [facility] 65 Interpretation: <10 ng/mL (severe deficiency) REFERENCE VALUE 25-HYDROXY D TOTAL (D2+D3) Optimum levels in the healthy population are 20-50, patients with bone disease may benefit from higher levels within this range. Test Performed by: [address] [address] Trailer Chief: Tad Henderson II, M.D., Ph.D. 66 Because ethnic data is not always readily available, this report includes an eGFR for both -Americans and non- Americans. The National Kidney Disease Education Program (NKDEP) does not endorse the use of the MDRD equation for patients that are not between the ages of 18 and 70, are , have extremes of body size, muscle mass, or nutritional status, or are non- or non-. According to the National Kidney Foundation, irrespective of diagnosis, the stage of the disease is based on the level of kidney function: Stage Description GFR(mL/min/1.73 m(2)) 1 Kidney damage with normal or decreased GFR 90 2 Kidney damage with mild decrease in GFR 60-89 3 Moderate decrease in GFR 30-59 4 Severe decrease in GFR 15-29 5 Kidney failure <15 (or dialysis) 67 Desirable <150 Borderline high 150-199 High 200-499 Very High >500 68 Desirable <200 Borderline high 200-239 High >239 69 Low <40 Desirable: 40-60 High: >60 70 Desirable <100 Near Optimal 100-129 Borderline high 130-159 High 160-189 Very High >189 Procedures Date Code Description Status 05/30/2018 56201 ECHO Transthoracic, Real-Time 2D With Doppler And Completed Color Flow 05/30/2018 27265 ECHO Transthoracic, Real-Time 2D With Doppler And Completed Color Flow 05/29/2018 [id number] Bone Mineral Density Test Completed 05/16/2018 82695 EKG Tracing & Interpretation Completed 07/19/2017 43731 ECHO Transthoracic, Real-Time 2D With Doppler And Completed Color Flow 07/19/2017 78557 ECHO Transthoracic, Real-Time 2D With Doppler And Completed Color Flow 06/28/2017 75682 Holter Monitor Review (24 hr)dr ortega & interp only Completed 06/26/2017 26517 Treadmill Interp/Report Only Completed 06/26/2017 50198 Stress Test Supervsn W/Out I/R Completed 06/22/2017 63318 ECG Monitor/Recording W/Visual Superimposition Completed Scanning 06/14/2017 56285 EKG Tracing & Interpretation Completed 11/16/2016 [id number] Mammogram Completed 10/05/2016 [id number] Bone Mineral Density Test Completed 06/06/2016 72290 EKG Tracing & Interpretation Completed 10/22/2015 [id number] Mammogram Completed 08/12/2015 39723 Event Monitor/Phys Review/Interp. Completed 08/02/2015 32605 EKG Tracing & Interpretation Completed 08/20/2014 21786 ECHO Stress Test Incl Perf Contiuous ekg Monitoring Completed W/Phys Superv 07/08/2014 58149 Holter Monitoring 24 HR New Completed 07/08/2014 24068 ECG Monitor/Recording W/Visual Superimposition Completed Scanning 07/08/2014 68423 Holter Monitor Review (24 hr)dr review & interp only Completed 07/01/2014 [id number] Colonoscopy Completed 06/30/2014 [id number] Colonoscopy Completed 06/26/2014 80944 ECHO Transthoracic, Real-Time 2D With Doppler And Completed Color Flow 06/22/2014 93739 EKG Tracing & Interpretation Completed 05/28/2014 [id number] Bone Mineral Density Test Completed 11/27/2013 47032 Holter Monitor Review (24 hr)dr review & interp only Completed 11/26/2013 [id number] Mammogram Completed 11/14/2013 75820 EKG Tracing & Interpretation Completed Encounters Type Date Location Provider Dx Diagnosis Office Visit 06/11/2018 [facility] Carolyn Guillermo, I34.0 Nonrheumatic mitral 3:30p Of Director Outcomes N.P. (valve) insufficiency R60.9 Edema, unspecified R06.02 Shortness of breath R00.2 Palpitations E78.5 Hyperlipidemia, unspecified Office Visit 05/16/2018 3:20p [facility] Dylan Martins R60.9 Edema, Of Kana Kaye M.D. unspecified R00.2 Palpitations R06.00 Dyspnea, unspecified I34.0 Nonrheumatic mitral (valve) insufficiency Office Visit 05/16/2018 8:30a DoNotUse [facility] Internal Shira R35.1 Nocturia Medicine-Shaheen Denton M.D. 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 insomnia K21.9 Gastro-esophageal reflux disease without esophagitis Z23 Encounter for immunization Office Visit 08/14/2017 8:30a [facility] Carolyn S. I34.0 Nonrheumatic mitral Of [facility] Eagle, N.PMelly (valve) insufficiency I35.1 Nonrheumatic aortic (valve) insufficiency I35.0 Nonrheumatic aortic (valve) stenosis I49.3 Ventricular premature depolarization R00.2 Palpitations Office Visit 06/28/2017 11:40a [facility] Internal Jyoti B00.1 Herpesviral Medicine - [address] Manuel vesicular R dermatitis Office Visit 06/14/2017 2:00p [facility] Dylan Martins E78.5 Hyperlipidemia, Of Kana Kaye M.D. unspecified I34.0 Nonrheumatic mitral (valve) insufficiency R00.2 Palpitations I47.1 Supraventricular tachycardia R06.00 Dyspnea, unspecified Office Visit 11/14/2016 DoNotUse [facility] Internal Shira Z00.01 Encounter for 8:50a Carmencita Denton M.D. 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 K21.9 Gastro-esophageal reflux disease without esophagitis Office 06/06/2016 DoNotUse [facility] Internal Shira K21.9 Gastro-esophageal Visit 8:50a Carmencita Denton reflux disease Fede without esophagitis Z23 Encounter for immunization Office Visit 06/06/2016 [place] Dylan Martins K21.9 Gastro-esophageal 1:40p Cardiology Fede Kaye reflux disease without esophagitis R00.2 Palpitations Office Visit 11/11/2015 2:00p [facility] Internal Tina Cabrera, Z00.01 Encounter for Medicine - Irene Mistry general adult medical exam w abnormal findings H53.30 Unspecified disorder of binocular vision 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.80 Other disorders of continuity of bone, unspecified site E56.8 Deficiency of other vitamins Office Visit 10/07/2015 1:00p [facility] Nakita Tamayo M79.606 Pain in leg, Of Kana GRADY unspecified I34.0 Nonrheumatic mitral (valve) insufficiency R00.2 Palpitations Office Visit 08/02/2015 9:20a [place] Dylan Martins M79.606 Pain in leg, Cardiology Fede Kaye unspecified I34.0 Nonrheumatic mitral (valve) insufficiency R00.2 Palpitations Office Visit 06/10/2015 3:20p [facility] Internal Tina Cabrera M79.672 Pain in left Medicine - Irene Mistry foot M25.511 Pain in right shoulder R60.0 Localized edema Office Visit 11/03/2014 2:00p [facility] Internal Tina Cabrera, 840.9 [facility] Strains Shoulder & Upper Arm Unspec 272.4 Hyperlipidemia Other Unspec V76.19 Screening Breast Exam Malignant Neoplasms Other Office Visit 08/20/2014 11:40a [facility] Internal Tina Cabrera, 919.4 Injury Superficial [facility] Insect Bite Oth Mult Unsp Nonv W/O Infect Office Visit 08/06/2014 11:00a [facility] Internal Tina Cabrera, 269.1 Vitamin Deficiency [facility] Other 733.99 Bone & Cartilage Disorder Other Office Visit 08/06/2014 9:30a [facility] MIGUEL A Morales 785.1 Palpitations 272.4 Hyperlipidemia Other Unspec 424.0 Mitral Valve Disorder 424.1 Aortic Valve Disorder 427.0 PSVT Paroxysmal Supraventricular Tachycardia Office Visit 06/22/2014 9:40a [facility] Dylan Martins 530.11 Esophagitis Fede aKye Reflux 300.02 Anxiety Disorder Generalized 785.1 Palpitations 785.2 Murmur Cardiac Undiagnosed 786.09 Dyspnea & Respiratory Abnormalities Other 786.50 Pain Chest Unspec Office Visit 05/08/2014 3:40p [facility] Internal Tina Cabrera, 530.11 Esophagitis Reflux Medicine - M.D. Ccmob V76.51 Special Screening For Malignant Neoplasms Colon 272.4 Hyperlipidemia Other Unspec 300.02 Anxiety Disorder Generalized 733.01 Osteoporosis Senile Office Visit 12/02/2013 11:40a [facility] Internal Tina Cabrera, V70.0 [facility] M.DMelly General Medical Routine AT [facility] 785.1 Palpitations 300.02 Anxiety Disorder Generalized 789.01 Pain Abdominal Right Upper Quadrant 272.4 Hyperlipidemia Other Unspec 848.8 Sprains & Strains Other Spec Sites Office Visit 11/14/2013 9:00a [facility] Internal Tina Cabrera, 785.1 Palpitations [facility] 272.4 Hyperlipidemia Other Unspec 300.02 Anxiety Disorder Generalized V76.19 Screening Breast Exam Malignant Neoplasms Other Plan of Treatment 09/12/2018 - Shira Denton M.D.Z00.00 Encounter for general adult medical examination without abnoComments:GENERAL PHYSICAL EXAM:You are up to date with your vaccinations. We discussed the shingles vaccine (Zostavax) today.Your last colonoscopy was in 2015A follow up colonoscopy is not due .I think that itis a good idea to have an Advance Directive on file here that we filled out .We reviewed healthy lifestyle practices, specifically, strategies to maintain a durable ideal body weight and an aerobic exercise routine.R06.02 Shortness of rqhiynI41.9 Anxiety disorder, unspecifiedComments:we discussed we can try medication for idegxghY99.50 Low vision, one eye, unspecified eyeReferral:Gordon Ghotra MD, Ophthalmology
--- NOTE | 2018-10-04 17:20 | UC ---
Dental HPI - HPI Summary HPI Summary: 77 y/o female presents to the urgent care w/ son who translates c/o left upper jaw pain w/ a molar w/ cavities for the past 2 days. Pt also reports nasal congestion w/ yellowish nasal discharge for the past week. She feels her throat feels scratchy w/ mild DURAN. Pt reports dental pain is 4/10 radiating to her left ear. Pt had mild low grade fever about 1 week ago when nasal congestion started and then resolved. Headache, scratchy throat, low temp a week ago and mostly resolved, but yesterday became weak and had a swollen mouth and pain on the upper left jaw with swelling around a tooth - History of Current Complaint Chief Complaint: UCDentalProblem Stated Complaint: FEVER, CHILLS Time Seen by Provider: 10/04/18 17:06 Hx Obtained From: Patient Onset/Duration: Gradual Onset, Lasting Days - 2 days of left upper jaw pain and mild swelling w/ a molar w/ cavities Severity: Mild Pain Intensity: 4 Pain Scale Used: 0-10 Numeric Aggravating Factor(s): Chewing Alleviating Factor(s): Nothing Related History: Swelling - mild around gum - Allergies/Home Medications Allergies/Adverse Reactions: Allergies Allergy/AdvReac Type Severity Reaction Status Date / Time lactose Allergy Nausea And Verified 10/04/18 16:24 Vomiting Home Medications: Home Medications Acyclovir* [Zovirax 200 MG CAP*] 200 mg PO TID PRN 10/04/18 [History Confirmed 10/04/18] PMH/Surg Hx/FS Hx/Imm Hx Previously Healthy: Yes Endocrine History: Dyslipidemia Cardiovascular History: Other - edema GI/ History: Gastroesophageal Reflux - Surgical History Surgical History: None - Family History Known Family History: Positive: Unknown - Pt denies FMHX - Social History Occupation: Retired Lives: With Family Alcohol Use: None Substance Use Type: None Smoking Status (MU): Never Smoked Tobacco Review of Systems All Other Systems Reviewed And Are Negative: Yes Constitutional: Positive: Chills Skin: Positive: Negative Eyes: Positive: Negative ENT: Positive: Dental Pain - left upper jaw pain w/ a molar w/ cavities, Sore Throat - mild, Ear Ache - left ear pain mild, Nasal Discharge - yellowish, Sinus Congestion Respiratory: Positive: Negative Cardiovascular: Positive: Negative Gastrointestinal: Positive: Negative Genitourinary: Positive: Negative Motor: Positive: Negative Neurovascular: Positive: Negative Musculoskeletal: Positive: Negative Neurological: Positive: Headache Psychological: Positive: Negative Is Patient Immunocompromised?: No Physical Exam Triage Information Reviewed: Yes Vital Signs: Initial Vital Signs Temp 98.1 F 10/04/18 16:16 Pulse 70 10/04/18 16:16 Resp 16 10/04/18 16:16 BP 109/49 10/04/18 16:16 Pulse Ox 100 10/04/18 16:16 Dental Complaint Course/Dx - Differential Dx/Diagnosis Differential Diagnosis/Dx: Dental Abscess, Dental Caries, Fractured Tooth, Odontogenic Pain, Peridontic Disease, Peritonsillar Abcess, Other - sinusitis Provider Diagnosis: Dental abscess, Acute bacterial sinusitis Discharge - Sign-Out/Discharge Documenting (check all that apply): Patient Departure - d/c home All imaging exams completed and their final reports reviewed: No Studies - Discharge Plan Condition: Stable Disposition: HOME Prescriptions: Amoxicillin PO (*) [Amoxicillin 500 MG CAP*] 500 mg PO Q12H #20 cap Fluticasone NASAL SPRAY 50MCG* [Flonase NASAL SPRAY 50MCG*] 2 spray BOTH NARES DAILY #1 btl Patient Education Materials: Sinusitis (ED), Dental Abscess (ED) Referrals: Shira Denton MD [Primary Care Provider] - 2 Days Additional Instructions: 1- Please increase fluid intake and rest. take full course of antibiotics to avoid resistance. Take yogurts w/ probiotics or Culturelle to protect your GI system 2-Use Flonase as directed to help drain fluid. Also buy saline drops to clear sinuses 3-Continue taking Tylenol Po to alleviate pain 4- F/u with your Dentist or Dental List provided as soon as possible for further treatment. 5- If symptoms do not improve or worsen and she develops fever despite taken antibiotic please take your mother to the ER for further management - Billing Disposition and Condition Condition: STABLE Disposition: Home
[2018-10-04 17:52] VITALS: BP 118/56
== END 2018-10-04 17:55 | disposition home or self-care (01) ==
LOC: UCEAST 15:53
DX: K04.7 Periapical abscess without sinus (principal); J01.90 Acute sinusitis, unspecified; B96.89 Other specified bacterial agents as the cause of diseases classified elsewhere
CPT/HCPCS: 99212; G0463